=== PATIENT | female | born 1955 | race Caucasian/White ===

== ENCOUNTER → 2019-05-21 | Outpatient (CLI) | payer OTHER ==
--- NOTE | 2019-05-22 22:34 | SLE ---
[facility] [place] [address] POLYSOMNOGRAPHY STUDY Name: ALESSIO WALLIS Room #: REG [facility]#: [id number] Admission: 05/21/19 ������������������ Attend Phys: Myron Flowers MD Discharge: ������������������ Date of : 51 Report #: [id number] THIS REPORT FOR: //name// CC: Myron Flowers FAM unknown JUAN CHAVES MD DATE OF SERVICE: 05/21/2019 ATTENDING PHYSICIAN: Dr. Juan Chaves. The patient is 63 years old who weighs 222 pounds with a BMI of 39.3. The patient's Comanche score was 4. The patient underwent split night study performed at [facility]. During the night study, the patient spent 442 minutes in bed and slept for 373 minutes with a sleep efficiency of 84%. Sleep latency was 16.8 minutes with a REM latency of 302 minutes. Overall, sleep architecture showed increased stage 1 sleep, normal stage 2 sleep, absent slow wave and normal REM sleep. During the initial diagnostic portion of the study, the patient slept for 125 minutes. During that time, there were 3 obstructive apneas, 1 mixed apnea, no central apneas and 34 hypopneas. The patient's apnea hypopnea index was 18.2 per hour. REM sleep was not seen during the diagnostic portion. Supine AHI was also 18.2 per hour. EKG monitoring revealed average heart rate of 61 beats per minute. No sustained arrhythmias observed. PLMS were seen at an index of 117 per hour and 11 per hour caused EEG arousals. PLM index significantly resolved to only 3.6 per hour while the patient slept on CPAP. Nocturnal oximetry study revealed an average oxygen saturation of 89% with the lowest of 82%. 85 minutes were spent in oxygen saturation of less than 89%. The patient met the criteria for CPAP initiation; however, the patient has been intolerant to CPAP and was started on BiPAP at a pressure of 12/6. The patient uses BiPAP at home. At the final pressure of 18/6, the patient slept for 52 minutes including 41 minutes of supine REM sleep. The patient's AHI was reduced to 0 per hour and oxygen saturation remained above 90%. IMPRESSION: 1. Moderate sleep apnea-hypopnea syndrome at an AHI of 18 per hour. Absence of REM sleep during the diagnostic portion can underestimate the severity of sleep apnea. [address] [address] POLYSOMNOGRAPHY STUDY Name: ALESSIO WALLIS [id number] Admission: 05/21/19 ������������������ Attend Phys: Myron Flowers MD Discharge: ������������������ Date of : 51 Report #: [id number] 2. Nocturnal hypoxia secondary to obstructive sleep apnea and suspected hypoventilation, but resolved with BiPAP. 3. Severe periodic limb movements during the diagnostic portion, completely resolved while the patient slept on BiPAP and as such does not need to be treated. RECOMMENDATIONS: 1. BiPAP at a pressure of 18/10 completely eliminated the patient's sleep apnea and should be used on a nightly basis. 2. Follow up in 4-6 weeks to assess compliance with BiPAP and to document clinical improvement. 3. Weight loss is strongly advised. 4. Avoid [employer] depressants. 5. Cautioned regarding driving until symptoms of sleep apnea resolve with the use of BiPAP. ��������������������������������������������� <ELECTRONICALLY SIGNED> ���������������������������������������� By: Myron Flowers MD ��������������������������������������������� 05/22/19 [id number] 1915 Myron Flowers MD /nt
== END ==
LOC: SLEEPLAB 14:27
DX: G47.33 Obstructive sleep apnea (adult) (pediatric) (principal); G47.30 Sleep apnea, unspecified; R09.02 Hypoxemia; I10 Essential (primary) hypertension; Z88.2 Allergy status to sulfonamides; Z88.8 Allergy status to other drugs, medicaments and biological substances

== ENCOUNTER → 2021-06-03 | Outpatient (CLI) | payer OTHER | LOC: RAD 12:42 | PROVIDERS: ATTEND Pediatrics | DX: R06.02 Shortness of breath (principal) ==